=== PATIENT | female | born 1970 | race Asian ===

== ENCOUNTER 2018-01-17 10:39 | Outpatient (CLI) | payer BC | END 2018-01-17 19:57 | disposition home or self-care (01) | LOC: SMA 10:39 | PROVIDERS: ATTEND General Practice | DX: Z12.31 Encounter for screening mammogram for malignant neoplasm of breast (principal) | CPT/HCPCS: 77067 ==

== ENCOUNTER 2019-03-14 12:56 | Outpatient (CLI) | payer BC | END 2019-03-14 18:18 | disposition home or self-care (01) | LOC: SMA 12:56 | PROVIDERS: ATTEND General Practice | DX: Z12.31 Encounter for screening mammogram for malignant neoplasm of breast (principal) | CPT/HCPCS: 77067 ==

== ENCOUNTER 2020-12-22 08:00 | Outpatient (CLI) | payer BC | END 2020-12-22 20:59 | disposition home or self-care (01) | LOC: SMA 08:00 | DX: Z12.31 Encounter for screening mammogram for malignant neoplasm of breast (principal) | CPT/HCPCS: 77067 ==